=== PATIENT | male | born 1950 | race Two or more races ===

== ENCOUNTER 2021-02-19 13:50 | Inpatient (IN) | payer OTHER ==
[~2021-02-19] VITALS: Ht 165.1 cm; Wt 80.3 kg
[2021-02-19] MEDS ORDERED: IV NS 0.9% 500 ML BAG IV ONE (14:00)
[2021-02-19 14:42] LABS: BASOPHILS # (AUTO) 0.1 K/uL (0.0-0.2); BASOPHILS % (AUTO) 0.2 % (0.0-2.0); HEMATOCRIT 28 % (39-51); HEMOGLOBIN 9.2 g/dL (13.5-17.5); LYMPHOCYTES # (AUTO) 1.2 K/uL (0.8-4.8); LYMPHOCYTES % (AUTO) 2.3 % (20.0-44.0); MEAN CORPUSCULAR HGB CONC 33 g/dl (31.0-36.0); MEAN CORPUSCULAR VOLUME 88 fL (80-96); MONOCYTES # (AUTO) 27.8 K/uL (0.1-1.30); MONOCYTES % (AUTO) 50.6 % (2.0-12.0); NEUTROPHILS # (AUTO) 25.7 K/uL (1.8-8.9); NEUTROPHILS % (AUTO) 46.9 % (43.0-81.0); PLATELET COUNT (AUTO) 65 K/uL (150-450); RED BLOOD CELL COUNT(AUTO) 3.22 MIL/uL (4.5-6.0)
[2021-02-19 14:44] LABS: WHITE BLOOD COUNT (AUTO) 54.9 K/uL (4.3-11.0)
--- NOTE | 2021-02-19 14:45 | NUR ---
DR CHASE AT BEDSIDE
[2021-02-19 14:57] LABS: CARBON DIOXIDE 23 mmol/L (21-32); CHLORIDE 102 mmol/L (98-107); GLUCOSE 116 mg/dL (74-106); SODIUM SERUM 137 mmol/L (136-145)
[2021-02-19 14:58] LABS: UREA NITROGEN, BLOOD 21 mg/dL (7-18)
--- NOTE | 2021-02-19 15:01 | NUR ---
COVID SWAB DONE AND SENT TO THE LAB
[2021-02-19 15:03] LABS: BILIRUBIN,TOTAL 1.4 mg/dL (0.2-1.0)
[2021-02-19 15:04] LABS: ALANINE AMINOTRANSFERASE 18 U/L (12-78); ALBUMIN 3.4 g/dL (3.4-5.0); ALKALINE PHOSPHATASE 63 U/L (46-116); ASPARTATE AMINOTRANSFERASE 18 U/L (15-37); BILIRUBIN,DIRECT 0.2 mg/dL (0.0-0.2); TOTAL PROTEIN, SERUM 6.7 g/dL (6.4-8.2)
--- NOTE | 2021-02-19 15:04 | NUR ---
DR NATARAJAN AT BEDSIDE
--- NOTE | 2021-02-19 15:48 | NUR ---
CALLED [facility]. THEY WILL GIVE US A CALL BACK TO SPEAK TO DR. NATARAJAN.
[2021-02-19] MEDS ORDERED: CEFTRIAXONE 1GM BAG (ER ONLY) 50 ML IV ONE ×2 (16:00→16:29)
[2021-02-19] MEDS ORDERED: POLY17PO4 PO (16:04)
[2021-02-19] MEDS ORDERED: DOCU250C14 PO (16:04)
[2021-02-19] MEDS ORDERED: ACET-2605 PO (16:04)
[2021-02-19] MEDS ORDERED: GABA-532 PO (16:04)
[2021-02-19] MEDS ORDERED: FLUO10CA29 PO (16:04)
[2021-02-19] MEDS ORDERED: ONDA4TAB5 PO (16:04)
[2021-02-19] MEDS ORDERED: OXYC5TAB3 PO (16:04)
[2021-02-19] MEDS ORDERED: DICL100G34 TP (16:04)
[2021-02-19] MEDS ORDERED: ASPI-1169 PO (16:04)
[2021-02-19] MEDS ORDERED: CT SWABBABLE VALVE TRANS SET 1 EA INFUS.SET MC ONE (16:17)
[2021-02-19] MEDS ORDERED: IOHEXOL-350 100 ML VIAL IV ONE (16:17)
[2021-02-19] MEDS ORDERED: IV NS 0.9% 250 ML IV ONE (16:17)
--- NOTE | 2021-02-19 16:20 | NUR ---
TAKEN TO CT
[2021-02-19 16:30] LABS: BAND % (MANUAL) 3 % (0.0-5.0); LYMPHOCYTES % (MANUAL) 3 % (16-48); MONOCYTES % (MANUAL) 24 % (0-11.0); NEUTROPHILS % (MANUAL) 70 (42-76)
[2021-02-19] MEDS ORDERED: IV NS 0.9% 1,000 ML BAG IV ONE ×2 (16:30→17:30)
[2021-02-19] MEDS ORDERED: ONDANSETRON HCL/PF 4 MG/2 ML VIAL IVP PRN (17:00)
[2021-02-19] MEDS ORDERED: POLYETHYLENE GLYCOL 3350 17 GM POWD.PACK PO PRN (17:00)
[2021-02-19] MEDS ORDERED: ZOLPIDEM TARTRATE 5 MG TABLET PO PRN (17:00)
[2021-02-19] MEDS ORDERED: Z GUARD REMEDY 2 OZ OINT TP PRN (17:00)
[2021-02-19] MEDS ORDERED: HYDROCODONE/APAP 5/325MG TABLET PO PRN (17:00)
[2021-02-19] MEDS ORDERED: MAGNESIUM HYDROXIDE 30 ML UDC PO PRN (17:00)
[2021-02-19] MEDS ORDERED: MAG HYDROX/AL HYDROX/SIMETH 30 ML UDC PO PRN (17:00)
--- NOTE | 2021-02-19 17:04 | NUR ---
[facility] - Dr. Ramos paged via exchange
--- NOTE | 2021-02-19 17:21 | NUR ---
ORAL TEMP 98.3, MD AWARE
[2021-02-19] MEDS: DOCUSATE SODIUM 250 MG CAPSULE PO SCH (18:00)
--- NOTE | 2021-02-19 18:08 | NUR ---
US AT BEDSIDE
--- NOTE | 2021-02-19 18:14 | NUR ---
CALLED [facility] ([place], [place]) [facility] FOR BED
--- NOTE | 2021-02-19 18:30 | NUR ---
ROOM 313-1 NURSE ASHLEY
--- NOTE | 2021-02-19 18:36 | NUR ---
REPORT GIVEN TO ASHLEY PARMAR FOR CA
--- NOTE | 2021-02-19 18:37 | NUR ---
RN NOTE RECEIVED REPORT FROM AGATA GORE FOR CA
--- NOTE | 2021-02-19 18:55 | NUR ---
RN NOTE PATIENT WAS BROUGHT TO ROOM 313-1 VIA RNEY. PT IS AMBULATORY. A/O X4. ON ROOM AIR TOLERATING WELL. NO SOB NOTED. IN NO APPARENT DISTRESS. VS BP 117/66 OH 101 RR 18 T 98.8 SA02 98% SAFETY MEASURES MAINTAINED. BED IN LOWEST POSITION, BRAKES LOCKED. SIDE RAILS UP X2. CALL LIGHT WITHIN REACH. WILL ENDORSE CA OF CARE TO ONCOMING SHIFT.
--- NOTE | 2021-02-19 19:30 | NUR ---
RN OPENING NOTE PATIENT ADMITTED FROM ER, PATIENT A/O X 4, ABLE TO MAKE NEEDS KNOWN. PATIENT IS ON RA, TOLERATING WELL, PATIENT FEBRILE 99.9 F TEMP AND MILD CHILLS PRESENT. COOLING MEASURES INITIATED AND TYLENOL GIVEN. PATIENT HAS A DRESSING PRESENT ON THE L KNEE, S/P TKA 02/18 AT [place]. NO PAIN AT THIS TIME. ORIENTED PATIENT TO ROOM, RN. NAFISA, CHARGE NURSE. ENCOURAGED PATIENT NOT TO GET UP YET UNTIL PT EVAL. R FA 20 G, PATENT AND INTACT, FLUSHING WELL. SAFETY MEASURES IN PLACE: BED LOCKED AND IN LOWEST POSITION, CALL LIGHT WITHIN REACH, SIDE RAILS UP. WILL MONITOR PATIENT CLOSELY.
[2021-02-19 20:00] VITALS: BP 117/64
[2021-02-19] MEDS: GABAPENTIN 100 MG CAPSULE PO SCH (20:13)
[2021-02-19] MEDS: ACETAMINOPHEN 325 MG TABLET PO PRN (20:13)
[2021-02-19] MEDS: ENOXAPARIN SODIUM 30 MG/0.3 ML DISP.SYRIN SQ SCH (20:18)
--- NOTE | 2021-02-19 20:30 | NUR ---
RN NOTE PER DAUGHTER, PATIENT SUPPOSED TO BE TAKING DECADRON 2MG 3 TABS ON DAY 1 POST PO, 2 TABS DAY 2 POST OP, AND 1 TAB DAY 3 POST OP L TKA. PER TIFFANY RASCON, HOLD FOR NOW D/T WBC 54.9.
[2021-02-19] MEDS: IV NS 0.9% 1,000 ML IV PRN (20:34)
[2021-02-19] MEDS ORDERED: DEXA6TAB6 PO (20:52)
[2021-02-19] MEDS ORDERED: IV NS 0.9% 500 ML IV ONE (21:00)
--- NOTE | 2021-02-19 21:00 | NUR ---
RN NOTE NOTIFIED BY LAB RE LACTIC ACID 3.2, MD AWARE. 500 ML NS BOLUS ORDERED BY TIFFANY RASCON. TEMP NOW DECREASED. PATIENT'S DTR AT BEDSIDE. MED RECON DONE. WILL MONITOR PATIENT CLOSELY.
[2021-02-19] MEDS ORDERED: OMEP20CA15 PO (23:59)
[2021-02-20] VITALS (12 sets, daily range): BP systolic 95–113; BP diastolic 53–69
[2021-02-20] MEDS ORDERED: LIDOCAINE 1% INJ 50 ML MDV IJ ONE (00:30)
[2021-02-20] MEDS: ACETAMINOPHEN 325 MG TABLET PO PRN ×2 (04:32→16:25)
--- NOTE | 2021-02-20 04:32 | NUR ---
RN NOTE TYLENOL GIVEN FOR FEVER OF 100.0 F, WILL REASSESS TEMP AT A LATER TIME.
--- NOTE | 2021-02-20 04:36 | NUR ---
RN NOTE OBTAINED CONSENT FOR BONE MARROW BIOPSY AND ASPIRATION FOR DR. KIRKLAND TODAY.
[2021-02-20] MEDS: IV NS 0.9% 1,000 ML IV PRN (05:54)
--- NOTE | 2021-02-20 06:49 | NUR ---
RN CLOSING NOTE PATIENT'S EYES CLOSED, EASILY AWAKENED. PATIENT A/O X 4, ABLE TO MAKE NEEDS KNOWN. PATIENT IS ON RA, TOLERATING WELL, PATIENT HAD FEVER AND CHILLS DURING THE SHIFT MANAGED WITH TYLENOL AND COOLING MEASURES. PATIENT'S TEMP NOW 98.3 F, AFEBRILE. PATIENT HAS A DRESSING PRESENT ON THE L KNEE, S/P TKA 02/18 AT [place], C/D/I. NO PAIN AT THIS TIME. R FA 20 G, PATENT AND INTACT, NS AT 75 ML/HR RUNNING. TELE MONITOR READS SR 93 BPM. SAFETY MEASURES IMPLEMENTED. ALL NEEDS MET AND ATTENDED. ALL ORDERS CARRIED OUT. WILL ENDORSE TO DAY SHIFT NURSE FOR CA.
[2021-02-20 07:13] LABS: BASOPHILS % (AUTO) 0.1 % (0.0-2.0); HEMATOCRIT 24 % (39-51); HEMOGLOBIN 7.8 g/dL (13.5-17.5); LYMPHOCYTES # (AUTO) 1.1 K/uL (0.8-4.8); LYMPHOCYTES % (AUTO) 4.3 % (20.0-44.0); MEAN CORPUSCULAR HGB CONC 33 g/dl (31.0-36.0); MEAN CORPUSCULAR VOLUME 88 fL (80-96); MONOCYTES # (AUTO) 11.6 K/uL (0.1-1.30); MONOCYTES % (AUTO) 44.3 % (2.0-12.0); NEUTROPHILS # (AUTO) 13.4 K/uL (1.8-8.9); NEUTROPHILS % (AUTO) 51.3 % (43.0-81.0); PLATELET COUNT (AUTO) 55 K/uL (150-450); RED BLOOD CELL COUNT(AUTO) 2.68 MIL/uL (4.5-6.0); WHITE BLOOD COUNT (AUTO) 26.1 K/uL (4.3-11.0)
[2021-02-20 07:27] LABS: CALCIUM, SERUM 7.6 mg/dL (8.5-10.1); CREATININE 1.2 mg/dL (0.6-1.3); MAGNESIUM 1.9 mg/dL (1.8-2.4); PHOSPHORUS 2.5 mg/dL (2.5-4.9); POTASSIUM 3.9 mmol/L (3.5-5.1)
[2021-02-20 07:39] LABS: URIC ACID 5.7 mg/dL (2.6-7.2)
[2021-02-20 07:40] LABS: THYROID STIMULATING HORMONE 4.051 uIU/mL (0.358-3.74)
[2021-02-20 08:26] LABS: D-DIMER 2.11 mg/L(FEU (0.17-0.50)
[2021-02-20] MEDS ORDERED: ASPIRIN 81 MG TAB.CHEW PO SCH (09:00)
[2021-02-20] MEDS: PANTOPRAZOLE 40 MG TABLET.DR PO SCH (09:20)
[2021-02-20] MEDS: Fluoxetine 10 mg capsule PO SCH (09:20)
[2021-02-20] MEDS: CEFEPIME 2 GM in IV D5W 100 ML IV SCH (09:29)
[2021-02-20 11:53] LABS: ALBUMIN 2.9 g/dL (3.4-5.0); BILIRUBIN,DIRECT 0.3 mg/dL (0.0-0.2); BILIRUBIN,TOTAL 0.9 mg/dL (0.2-1.0); TOTAL PROTEIN, SERUM 5.9 g/dL (6.4-8.2)
[2021-02-20] MEDS ORDERED: ACETAMINOPHEN 325 MG TABLET PO ONE ×2 (12:00→21:00)
[2021-02-20] MEDS ORDERED: diphenhydrAMINE HCL 50 MG/ML VIAL IV ONE ×2 (12:00→21:00)
[2021-02-20] MEDS ORDERED: MORPHINE SULFATE INJ 2 MG/ML DISP.SYRIN IV ONE ×2 (12:30→18:00)
[2021-02-20] MEDS: ALLOPURINOL 100 MG TABLET PO SCH (12:45)
[2021-02-20 13:18] LABS: LYMPHOCYTES % (MANUAL) 6 % (16-48); MONOCYTES % (MANUAL) 36 % (0-11.0); NEUTROPHILS % (MANUAL) 58 (42-76)
[2021-02-20] MEDS: SOD FERRIC GLUC 125 MG in IV NS 0.9% 100 ML IV SCH (14:00)
[2021-02-20] MEDS: ACYCLOVIR 200 MG CAPSULE PO SCH (16:24)
--- NOTE | 2021-02-20 16:25 | NUR ---
MS/RN NOTES- FEVER PATIENT HAS 102 F FEVER, NO CHILLS, NO DISCOMFORTS. TYLENOL 650MG GIVEN PO. WILL MONITOR.
[2021-02-20] MEDS: GABAPENTIN 100 MG CAPSULE PO SCH (18:15)
[2021-02-20] MEDS: DOCUSATE SODIUM 250 MG CAPSULE PO SCH (18:15)
--- NOTE | 2021-02-20 19:44 | NUR ---
TELE/RN CLOSING NOTE PATIENT A/O X 4, ABLE TO MAKE NEEDS KNOWN. PATIENT IS ON RA, TOLERATING WELL, PATIENT HAD FEVER AND CHILLS DURING THE SHIFT MANAGED WITH TYLENOL AND COOLING MEASURES. PATIENT'S TEMP NOW 98.8 F, AFEBRILE. PATIENT HAS A DRESSING PRESENT ON THE L KNEE, S/P TKA 02/18 AT [place], C/D/I. NO PAIN AT THIS TIME. R FA 20 G, PATENT AND INTACT, NS AT 75 ML/HR RUNNING. TELE MONITOR READS SR 93 BPM. BONE BIOPSY DONE BY DR. KIRKLAND. SAFETY MEASURES IMPLEMENTED. ALL NEEDS MET AND ATTENDED. ALL ORDERS CARRIED OUT. WILL ENDORSE TO NEXT SHIFT FOR CA.
--- NOTE | 2021-02-20 19:50 | NUR ---
RN OPENING NOTE PT AWAKE IN BED, RESTING. AOx4, LIBERIAN SPEAKING. ON RA AND TOLERATING WELL. NO SOB NOTED. NO S/SX OF RESPIRATORY DISTRESS PRESENT. NO COMPLAINT OF PAIN AT THIS TIME. IV ACCESS IN R FA#20G RUNNING 75 ML/HR. TELE MONITOR DETECTS SINUS TACHYCARDIA AND SINUS RHYTHM WITH RATE OF 95-105. SAFETY MEASURES IN PLACE: BRAKES ON, SIDERAILS UPx2, BED IN LOWEST, LOCKED POSITION. CALL LIGHT AND TABLE WITHIN REACH. WILL CONTINUE TO MONITOR.
[2021-02-20 20:22] LABS: BASOPHILS # (AUTO) 0.1 K/uL (0.0-0.2); BASOPHILS % (AUTO) 0.6 % (0.0-2.0); HEMATOCRIT 24 % (39-51); HEMOGLOBIN 8.1 g/dL (13.5-17.5); LYMPHOCYTES # (AUTO) 0.8 K/uL (0.8-4.8); LYMPHOCYTES % (AUTO) 3.4 % (20.0-44.0); MEAN CORPUSCULAR HGB CONC 33 g/dl (31.0-36.0); MEAN CORPUSCULAR VOLUME 88 fL (80-96); MONOCYTES # (AUTO) 9.2 K/uL (0.1-1.30); MONOCYTES % (AUTO) 40.4 % (2.0-12.0); NEUTROPHILS # (AUTO) 12.7 K/uL (1.8-8.9); NEUTROPHILS % (AUTO) 55.6 % (43.0-81.0); PLATELET COUNT (AUTO) 65 K/uL (150-450); RED BLOOD CELL COUNT(AUTO) 2.75 MIL/uL (4.5-6.0); WHITE BLOOD COUNT (AUTO) 22.8 K/uL (4.3-11.0)
[2021-02-20 20:47] LABS: BASOPHILS % (MANUAL) 1 % (0.0-2.0); LYMPHOCYTES % (MANUAL) 6 % (16-48); MONOCYTES % (MANUAL) 30 % (0-11.0); NEUTROPHILS % (MANUAL) 63 (42-76)
[2021-02-20] MEDS: ENOXAPARIN SODIUM 30 MG/0.3 ML DISP.SYRIN SQ SCH (21:00)
--- NOTE | 2021-02-20 21:10 | NUR ---
ADMINISTERED BENADRYL AND TYLENOL PER MD ORDER PRIOR TO TRANSFUSION. WILL CONTINUE TO MONITOR PATIENT. Addendum: 02/21/21 at 0621 by LATOYA ATKINS RN SCANNED BOTH MEDICATIONS UNDER 1200.
--- NOTE | 2021-02-20 21:46 | NUR ---
PT HAS PLATELETS OF 65. HELD LOVENOX.
--- NOTE | 2021-02-20 21:55 | NUR ---
ADMINISTERED 1 BAG OF PLASMA. NO S/SX OF REACTIONS. FINAL VITAL SIGNS ARE 98.5, 106/58, 97 BPM, 18 RESPIRATIONS AND 97% OXYGEN SATURATION. PATIENT TOLERATED WELL.
--- NOTE | 2021-02-20 23:37 | NUR ---
ADMINISTERED 2ND BAD OF PLASMA. VS WNL. PATIENT TOLERATING WELL. WILL CONTINUE TO MONITOR.
[2021-02-21] VITALS: BP 113/62
[2021-02-21] MEDS: CEFEPIME 2 GM in IV D5W 100 ML IV SCH ×2 (00:48→08:57)
[2021-02-21] MEDS: IV NS 0.9% 1,000 ML IV PRN (00:58)
[2021-02-21 04:00] VITALS: BP 110/60
[2021-02-21 06:34] LABS: BASOPHILS % (AUTO) 0.2 % (0.0-2.0); HEMATOCRIT 22 % (39-51); HEMOGLOBIN 7.3 g/dL (13.5-17.5); LYMPHOCYTES # (AUTO) 0.7 K/uL (0.8-4.8); LYMPHOCYTES % (AUTO) 4.6 % (20.0-44.0); MEAN CORPUSCULAR HGB CONC 33 g/dl (31.0-36.0); MEAN CORPUSCULAR VOLUME 89 fL (80-96); MONOCYTES # (AUTO) 5.6 K/uL (0.1-1.30); MONOCYTES % (AUTO) 35.9 % (2.0-12.0); NEUTROPHILS # (AUTO) 9.2 K/uL (1.8-8.9); NEUTROPHILS % (AUTO) 59.3 % (43.0-81.0); PLATELET COUNT (AUTO) 57 K/uL (150-450); RED BLOOD CELL COUNT(AUTO) 2.47 MIL/uL (4.5-6.0); WHITE BLOOD COUNT (AUTO) 15.5 K/uL (4.3-11.0)
--- NOTE | 2021-02-21 06:45 | NUR ---
COBOL MAINFRAME DEVELOPER CLOSING NOTES PT AWAKE IN BED, SLEEPING, AWAKENS TO VERBAL STIMULI. AOx4, RWANDAN SPEAKING. ON RA AND TOLERATING WELL. NO SOB NOTED. NO S/SX OF RESPIRATORY DISTRESS PRESENT. NO COMPLAINTS OF PAIN THROUGHOUT SHIFT. IV ACCESS IN R FA#20G RUNNING 75 ML/HR. TELE MONITOR DETECTS SINUS TACHYCARDIA AND SINUS RHYTHM WITH RATE OF 95-105. NO REACTIONS TO TRANSFUSION NOTED. ALL NEEDS MET. PT KEPT CLEAN AND DRY. SAFETY MEASURES IN PLACE: BRAKES ON, SIDERAILS UPx2, BED IN LOWEST, LOCKED POSITION. CALL LIGHT AND TABLE WITHIN REACH. WILL ENDORSE TO ONCOMING SHIFT.
[2021-02-21 06:53] LABS: ALBUMIN 2.9 g/dL (3.4-5.0); BILIRUBIN,TOTAL 1.4 mg/dL (0.2-1.0); CREATININE 1.1 mg/dL (0.6-1.3); MAGNESIUM 2.1 mg/dL (1.8-2.4); PHOSPHORUS 2.8 mg/dL (2.5-4.9); POTASSIUM 3.5 mmol/L (3.5-5.1); TOTAL PROTEIN, SERUM 6.2 g/dL (6.4-8.2)
[2021-02-21 07:07] LABS: IMMUNOGLOBULIN A, SERUM 184 mg/dL (61-437); IMMUNOGLOBULIN G, SERUM 897 mg/dL (603-1613); IMMUNOGLOBULIN M, SERUM 157 mg/dL (15-143)
--- NOTE | 2021-02-21 07:30 | NUR ---
received pt. in am alert and oriented x4,no complaints.vs stable. side rails up call meade within reach.
[2021-02-21 08:00] VITALS: BP 118/63
[2021-02-21 08:14] LABS: BAND % (MANUAL) 1 % (0.0-5.0); LYMPHOCYTES % (MANUAL) 4 % (16-48); MONOCYTES % (MANUAL) 23 % (0-11.0); NEUTROPHILS % (MANUAL) 72 (42-76)
[2021-02-21] MEDS ORDERED: FLUCONAZOLE (100 MG) 100 MG TABLET PO SCH (09:00)
[2021-02-21] MEDS: ACYCLOVIR 200 MG CAPSULE PO SCH (09:20)
[2021-02-21] MEDS: Fluoxetine 10 mg capsule PO SCH (09:20)
[2021-02-21] MEDS: ALLOPURINOL 100 MG TABLET PO SCH (09:21)
[2021-02-21] MEDS: PANTOPRAZOLE 40 MG TABLET.DR PO SCH (09:21)
--- NOTE | 2021-02-21 10:16 | NUR ---
given miralax for constipation.
[2021-02-21 12:00] VITALS: BP 123/69
[2021-02-21] MEDS: SOD FERRIC GLUC 125 MG in IV NS 0.9% 100 ML IV SCH (14:51)
--- NOTE | 2021-02-21 15:00 | NUR ---
refused dc photos.
[2021-02-21 16:00] VITALS: BP 114/64
[2021-02-21] MEDS: ACETAMINOPHEN 325 MG TABLET PO PRN (16:33)
--- NOTE | 2021-02-21 16:33 | NUR ---
medicated for headache with tylenol 650 mg po.
--- NOTE | 2021-02-21 17:10 | NUR ---
family in to visit all day.dc order per dr. waterman.iv removed,bandage to site.dc instructions given to dtr. all papers signed including belonging sheet.taken to lobby via w/c accompanied by dtr. and rn.
[2021-02-23 06:06] LABS: *SPE A/G RATIO 1.3 (0.7-1.7); *SPE ALPHA-1-GLOBULIN 0.3 g/dL (0.0-0.4); *SPE ALPHA-2-GLOBULIN 0.5 g/dL (0.4-1.0); *SPE BETA GLOBULIN 0.6 g/dL (0.7-1.3); *SPE M-SPIKE Not Observed g/dL (Not Observed)
[2021-02-23 08:06] LABS: *ANA ANTI-CENTROMERE B AB <0.2 AI (0.0-0.9); *ANA ANTI-DNA(DS) AB, QN 1 IU/mL (0-9); *ANA ANTI-JO-1 <0.2 AI (0.0-0.9); *ANA ANTICHROMATIN ANTIBODY <0.2 AI (0.0-0.9); *ANA RNP ANTIBODIES 0.3 AI (0.0-0.9); *ANA SJOGREN'S ANTI-SS-A <0.2 AI (0.0-0.9); *ANA SJOGREN'S ANTI-SS-B <0.2 AI (0.0-0.9); *ANAANTI-SCLERODERMA-70 AB 0.3 AI (0.0-0.9); *ANASMITH AB <0.2 AI (0.0-0.9)
== END 2021-02-21 17:03 | disposition home or self-care (01) | DRG 312 ==
LOC: ER 13:52 → TELE 18:40
PROC: 30233K1 Transfusion of Nonautologous Frozen Plasma into Peripheral Vein, Percutaneous Approach (ICD-10-PCS; principal; 2021-02-20)
PROC: 07DR3ZX Extraction of Iliac Bone Marrow, Percutaneous Approach, Diagnostic (ICD-10-PCS; 2021-02-20)
DX: R55 Syncope and collapse (principal); J98.11 Atelectasis; D68.9 Coagulation defect, unspecified; E87.2 Acidosis; N17.9 Acute kidney failure, unspecified; M19.90 Unspecified osteoarthritis, unspecified site; D69.6 Thrombocytopenia, unspecified; D72.829 Elevated white blood cell count, unspecified; J84.10 Pulmonary fibrosis, unspecified; Z20.822 Contact with and (suspected) exposure to COVID-19; Z96.653 Presence of artificial knee joint, bilateral; Z79.899 Other long term (current) drug therapy; D50.9 Iron deficiency anemia, unspecified; D72.821 Monocytosis (symptomatic); E86.0 Dehydration; Z80.7 Family history of other malignant neoplasms of lymphoid, hematopoietic and related tissues; Z79.82 Long term (current) use of aspirin; T50.905A Adverse effect of unspecified drugs, medicaments and biological substances, initial encounter; Y92.9 Unspecified place or not applicable
CPT/HCPCS: 36415; 71045-TC; 76700-TC; 80048-TC; 80053-TC; 80061-TC; 80076-TC; 82728-TC; 82784; 82962-TC; 83010; 83540-TC; 83605-TC; 83735-TC; 84100-TC; 84145; 84155; 84165; 84443-TC; 84484-TC; 84550-TC; 85025-TC; 85045-TC; 85378-TC; 85396; 86140-TC; 86225; 86235; 86334; 86431-TC; 86480; 86706; 86803; 86850-TC; 86880-TC; 87040-TC; 87081-TC; 87340; 87806; 93307-TC; 93880-TC; 93970-TC; 97116-TC; 97530-TC; C9803; G0378; J0692; J0696; J1200; J1650; J2270; J2405; J2916; J3490; J7030; J7040; J7050; J7060; P9017; Q9967